=== PATIENT | female | born 1985 | race Caucasian/White ===

== ENCOUNTER 2016-08-26 09:53 | Emergency (ER) | payer MEDICAID ==
[~2016-08-26] VITALS: Ht 170.2 cm; Wt 72.5 kg
[2016-08-26 09:55] VITALS: BP 125/75; PULSE 74; RESP 20; TEMP 98.5; O2SAT 100
--- NOTE | 2016-08-26 10:42 | PD ---
HPI Chief Complaint: Abdominal Pain Time Seen by Provider: 10:18 Travel History International Travel<30 days: No Contact w/Intl Traveler<30days: No Traveled to known affect area: No History of Present Illness HPI The patient was seen and examined in the presence of the nurse. This patient complains of pain in her left low back. Duration 2 days. Severity is moderate. No injury. No fever. Urinary complaints or hematuria. PFSH Past Medical History Medical History: Denies Significant Hx Diabetes: No Diminished Hearing: No GERD: Yes Respiratory: Yes (smoker, obstructive lung disorder) Tetanus Vaccination: < 5 Years Influenza Vaccination: No ?: Not LMP: August 26, 2016 : 4 Para: 4 Miscarriage: 0 : 0 Tubal Ligation: Yes Past Surgical History Section: Yes (X4) Cholecystectomy: Yes Gynecologic Surgery: Yes ( X4, TUBAL LIGATION.) Hysterectomy: No Social History Alcohol Use: Yes (occ) Tobacco Use: Yes (1 PPD) Substance Use: Yes (marijuana) Allergies-Medications (Allergen,Severity, Reaction): Coded Allergies: No Known Allergies (Verified , 09/10/15) Reported Meds & Prescriptions Reported Meds & Active Scripts Active No Active Prescriptions or Reported Medications Review of Systems General / Constitutional: No: Fever HENT: No: Headaches Cardiovascular: No: Chest Pain or Discomfort Respiratory: No: Cough Physical Exam Narrative GASTROINTESTINAL: Abdomen soft, non-tender, nondistended. Positive bowel sounds. No hepato-splenomegaly, or palpable masses. No guarding. SKIN: Focused skin assessment reveals no rash or ulcers. Skin is warm and dry. Palpation shows no induration or nodules. Back: No midline tenderness. There is readily reproducible point tenderness to the left low back. No bruising or swelling or spasm seen. Straight leg and cross straight leg raises are negative NEUROLOGICAL: Awake and alert. Pupils are equal round and reactive. Motor and sensory grossly within normal limits. Five out of 5 muscle strength in all muscle groups. Normal speech. Data Data Last Documented VS Vital Signs Date Time Temp Pulse Resp B/P Pulse Ox O2 Delivery O2 Flow Rate FiO2 08/26/16 09:55 98.5 74 20 125/75 100 Room Air Orders Ed Urine Pregnancytest Poc (08/26/16 10:34) Urinalysis - C+S If Indicated (08/26/16 10:34) Labs Laboratory Tests Test 08/26/16 10:39 Urine Color YELLOW Urine Turbidity HAZY Urine pH 5.5 Urine Specific [place] 1.020 Urine Protein NEG mg/dL Urine Glucose (UA) NEG mg/dL Urine Ketones NEG mg/dL Urine Occult Blood SMALL Urine Nitrite NEG Urine Bilirubin NEG Urine Urobilinogen LESS THAN 2.0 MG/DL Urine Leukocyte Esterase NEG Urine RBC 1 /hpf Urine WBC 1 /hpf Urine Squamous Epithelial 1 /hpf Cells Urine Mucus FEW /lpf Microscopic Urinalysis Comment CULT NOT INDICATED MDM Medical Decision Making Medical Screen Exam Complete: Yes Emergency Medical Condition: Yes Medical Record Reviewed: Yes Differential Diagnosis Sciatica, lumbar strain, pyelonephritis Narrative Course I have reviewed the patient's electronic medical record. Urine is negative Urinalysis is negative I think this patient most likely has mechanical low back pain. Presentation not consistent with kidney stone. She does not have infection. Clinically stable for outpatient follow-up I prescribed her some tramadol for symptom relief Diagnosis Primary Impression: Low back pain Qualified Code: M54.5 - Acute left-sided low back pain without sciatica Additional Instructions: The patient was advised to follow up with their physician and return if they worsen. The patient was warned about potential sedation for the medications they will receive on prescription. Med/Other Pt SpecificInfo: Prescription(s) given Scripts Tramadol 50 Mg Tab50 Mg PO Q6H PRN (PAIN) #20 TAB Ref 0 Prov:Zac Arredondo MD 08/26/16 Disposition: 01 DISCHARGE HOME Condition: Stable Zac Arredondo MD Aug 26, 2016 10:42
[2016-08-26 11:10] LABS: BLOOD, URINE SMALL (NEG); GLUCOSE,URINE NEG (NEG); KETONE, URINE NEG (NEG); MUCUS URINE FEW /lpf (OCC); NITRITE,URINE NEG (NEG); PH, URINE 5.5 (5.0-8.5); SQUAMOUS EPITHELIAL CELL URINE 1 /hpf (0-5); URINE COLOR YELLOW (YELLW/STRAW)
[2016-08-26 11:11] LABS: COMMENT (UR) CULT NOT INDICATED; CULTURE IF INDICATED CULT NOT INDICATED
[2016-08-26] MEDS ORDERED: TRAM50TA PO (12:43)
== END 2016-08-26 13:29 | disposition home or self-care (01) ==
LOC: NEPD 09:53
DX: M54.5 Low back pain (principal); F17.210 Nicotine dependence, cigarettes, uncomplicated; F12.90 Cannabis use, unspecified, uncomplicated
CPT/HCPCS: 81001; 84703; 99283

== ENCOUNTER 2016-12-27 22:56 | Emergency (ER) | payer MEDICAID ==
[~2016-12-27] VITALS: Ht 170.2 cm; Wt 74.0 kg
[~2016-12-27 22:56] MED LIST: TRAM50TA PO
[2016-12-27 23:32] VITALS: BP 111/61; PULSE 74; RESP 18; TEMP 98.2; O2SAT 98
== END 2016-12-28 01:59 | disposition left against medical advice (07) ==
LOC: PHED 22:56
DX: Z53.21 Procedure and treatment not carried out due to patient leaving prior to being seen by health care provider (principal)
CPT/HCPCS: 99281

== ENCOUNTER 2017-03-11 19:22 | Emergency (ER) | payer SELFPAY ==
[~2017-03-11] VITALS: Ht 170.2 cm; Wt 77.0 kg
[2017-03-11 19:37] VITALS: BP 123/62; PULSE 90; RESP 18; TEMP 98.5; O2SAT 99
[2017-03-11] MEDS ORDERED: SODIUM CHLOR 0.9% 1000 ML INJ 1,000 ML IV ONE (19:44)
[2017-03-11] MEDS ORDERED: MORPHINE SULFATE 4 MG/ML INJ IV PUSH ONE (19:45)
[2017-03-11] MEDS ORDERED: KETOROLAC TROMETHAMINE 30 MG/ML (IVP) VIAL IV PUSH ONE (19:45)
[2017-03-11] MEDS ORDERED: ONDANSETRON HCL 4 MG/2 ML VIAL IV PUSH ONE (19:45)
--- NOTE | 2017-03-11 19:49 | PD ---
HPI Chief Complaint: Flank/Kidney Pain Time Seen by Provider: 19:40 Travel History International Travel<30 days: No Contact w/Intl Traveler<30days: No Traveled to known affect area: No History of Present Illness HPI C/O LEFT FLANK PAIN, 8/10, [place], ?RADIATING TO LLL, DENIES ASSOC FEVER/N/V/D/ ....no alleviating/aggraavating factors CHART AND RN NOTES REVIEWED PCP- PMHX: DENIES PSHX: GB PFSH Past Medical History Diabetes: No Diminished Hearing: No GERD: Yes Respiratory: Yes (smoker, obstructive lung disorder) : 4 Para: 4 Miscarriage: 0 : 0 Tubal Ligation: Yes Past Surgical History Section: Yes (X4) Cholecystectomy: Yes Gynecologic Surgery: Yes ( X4, TUBAL LIGATION.) Hysterectomy: No Social History Alcohol Use: Yes (occ) Tobacco Use: Yes (1 PPD) Substance Use: Yes (marijuana) Allergies-Medications (Allergen,Severity, Reaction): Coded Allergies: No Known Allergies (Verified Allergy, Unknown, 03/11/17) Reported Meds & Prescriptions Reported Meds & Active Scripts Active Naproxen EC (Naproxen) 375 Mg Tabdr 375 Mg PO BID Baclofen 10 Mg Tab 10 Mg PO Q8HR Review of Systems Except as stated in HPI: all other systems reviewed are Neg General / Constitutional: No: Fever Eyes: No: Visual changes HENT: No: Headaches Cardiovascular: No: Chest Pain or Discomfort Respiratory: No: Shortness of Breath Gastrointestinal: No: Abdominal Pain Genitourinary: Positive: Flank Pain Musculoskeletal: No: Pain Skin: No Rash Neurologic: No: Weakness Psychiatric: No: Depression Endocrine: No: Polydipsia Hematologic/Lymphatic: No: Easy Bruising Physical Exam Narrative GENERAL: SKIN: Warm and dry. HEAD: Atraumatic. Normocephalic. EYES: Pupils equal and round. No scleral icterus. No injection or drainage. ENT: No nasal bleeding or discharge. Mucous membranes pink and moist. NECK: Trachea midline. No JVD. CARDIOVASCULAR: Regular rate and rhythm. RESPIRATORY: No accessory muscle use. Clear to auscultation. Breath sounds equal bilaterally. GASTROINTESTINAL: Abdomen soft, non-tender, nondistended, MILD LLQ TTP WELL LEFT CVAT MUSCULOSKELETAL: Extremities without clubbing, cyanosis, or edema. No obvious deformities. NEUROLOGICAL: Awake and alert. No obvious cranial nerve deficits. Motor grossly within normal limits. Five out of 5 muscle strength in the arms and legs. Normal speech. PSYCHIATRIC: Appropriate mood and affect; insight and judgment normal. Data Data Last Documented VS Vital Signs Date Time Temp Pulse Resp B/P (MAP) Pulse Ox O2 Delivery O2 Flow Rate FiO2 03/11/17 20:44 70 16 120/60 (80) 99 03/11/17 19:37 98.5 Orders Orders Urinalysis - C+S If Indicated (03/11/17 19:44) Ed Urine Pregnancytest Poc (03/11/17 19:44) Ct Abd/Pel W/O Iv Contrast (03/11/17 19:44) Iv Access Insert/Monitor (03/11/17 19:44) Ketorolac Inj (Toradol Inj) (03/11/17 19:45) Ondansetron Inj (Zofran Inj) (03/11/17 19:45) Sodium Chlor 0.9% 1000 Ml Inj (Ns 1000 M (03/11/17 19:44) Morphine Inj (Morphine Inj) (03/11/17 20:15) Ed Discharge Order (03/11/17 20:40) Labs Laboratory Tests Test 03/11/17 19:44 Urine Color YELLOW Urine Turbidity CLEAR Urine pH 6.0 Urine Specific [place] 1.025 Urine Protein NEG mg/dL Urine Glucose (UA) NEG mg/dL Urine Ketones NEG mg/dL Urine Occult Blood NEG Urine Nitrite NEG Urine Bilirubin NEG Urine Leukocyte Esterase NEG Urine RBC 0-3 /hpf Urine WBC 0-2 /hpf Urine Squamous Epithelial Cells 0-5 /hpf Urine Mucus MOD /lpf Microscopic Urinalysis Comment CULT NOT INDICATED MDM Medical Decision Making Medical Screen Exam Complete: Yes Emergency Medical Condition: Yes Medical Record Reviewed: Yes Differential Diagnosis PYELO V UTI V OVARIAN CYST V COLITIS V KIDNEY STONE V ECTOPIC PREG Narrative Course NEG , UA NEG FOR UTI, Diagnosis Primary Impression: Low back pain Qualified Codes: M54.5 - Low back pain Additional Impression: Muscle strain Patient Instructions: Acute Low Back Pain (ED), General Instructions Scripts Naproxen DR (Naproxen EC) 375 Mg Tabdr 375 MG PO BID, #30 TAB 0 Refills Prov: Wilbert Mcguire MD 03/11/17 Baclofen (Baclofen) 10 Mg Tab 10 MG PO Q8HR, #21 TAB 0 Refills Prov: Wilbert Mcguire MD 03/11/17 Disposition: 01 DISCHARGE HOME Condition: Stable Wilbert Mcguire MD Mar 11, 2017 19:49
[2017-03-11 19:53] LABS: BLOOD, URINE NEG (NEG); GLUCOSE,URINE NEG (NEG); KETONE, URINE NEG (NEG); NITRITE,URINE NEG (NEG)
[2017-03-11 20:02] LABS: MUCUS URINE MOD /lpf (OCC); URINE COLOR YELLOW (YELLW/STRAW)
[2017-03-11 20:03] LABS: COMMENT (UR) CULT NOT INDICATED; CULTURE IF INDICATED CULT NOT INDICATED; RBC, URINE 0-3 /hpf (0-3); SQUAMOUS EPITHELIAL CELL URINE 0-5 /hpf (0-5); WBC, URINE 0-2 /hpf (0-5)
[2017-03-11] MEDS ORDERED: MORPHINE SULFATE 2 MG/ML INJ IV ONE (20:15)
--- NOTE | 2017-03-11 20:28 | RADRPT ---
EXAM DATE/TIME: 03/11/2017 20:03 [facility] COMPARISON: No previous studies available for comparison. INDICATIONS : Left flank /back pain since this a.m. ORAL CONTRAST: No oral contrast ingested. RADIATION DOSE: 14.02 CTDIvol (mGy) MEDICAL HISTORY : None SURGICAL HISTORY : Cholecystectomy. Tubal ligation. section. ENCOUNTER: Initial ACUITY: 1 day PAIN SCALE: 9/10 LOCATION: Left flank TECHNIQUE: Volumetric scanning of the abdomen and pelvis was performed. Using automated exposure control and ad justment of the mA and/or kV according to patient size, radiation dose was kept as low as reasonably achievable to obtain optimal diagnostic quality images. DICOM format image data is available electro nically for review and comparison. FINDINGS: LOWER LUNGS: The visualized lower lungs are clear. LIVER: Homogeneous density without lesion. There is no dilation of the biliary tree. Status post cholecyste ctomy. SPLEEN: Normal size without lesion. PANCREAS: Within normal limits. KIDNEYS: Normal in size and shape. There is no mass, stone, or hydronephrosis. ADRENAL GLANDS: Within normal limits. VASCULAR: There is no aortic aneurysm. BOWEL/MESENTERY: No oral contrast was given limiting the sensitivity of the exam. The stomach, small bowel, and colon demonstrate no acute abnormality. There is no free intraperitoneal air or fluid. There is a normal a ppendix. ABDOMINAL WALL: Within normal limits. RETROPERITONEUM: There is no lymphadenopathy. BLADDER: No wall thickening or mass. REPRODUCTIVE: Within normal limits. INGUINAL: There is no lymphadenopathy or hernia. MUSCULOSKELETAL: Within normal limits for patient age. CONCLUSION: 1. The kidneys are unremarkable with no renal calculi or obstruction. 2. Status post cholecystectomy. 3. Nonobstructive bowel gas pattern the appendix is unremarkable. Js Shaver MD on March 11, 2017 at 20:25 Board Certified Radiologist. This report was verified electronically.
[2017-03-11] MEDS ORDERED: NAPR375T4 PO (20:39)
[2017-03-11] MEDS ORDERED: BACL10TA PO (20:39)
[2017-03-11 20:44] VITALS: BP 120/60
== END 2017-03-11 21:14 | disposition home or self-care (01) ==
LOC: PHED 19:22
DX: M54.5 Low back pain (principal); F17.210 Nicotine dependence, cigarettes, uncomplicated
CPT/HCPCS: 74176; 81001; 84703; 96361; 96374; 96375; 99285; J1885; J2270; J2405; J7030

== ENCOUNTER 2017-09-27 11:02 | Observation (INO) | payer SELFPAY ==
[2017-09-27] VITALS (8 sets, daily range): BP systolic 92–114; BP diastolic 51–66; PULSE 54–69; RESP 16–20; TEMP 97.4–98; O2SAT 96–99
[~2017-09-27 11:02] MED LIST changes: +BACL10TA PO; +NAPR375T4 PO; -TRAM50TA PO
--- NOTE | 2017-09-27 11:43 | PD ---
HPI Chief Complaint: Chest Pain Time Seen by Provider: 11:30 Travel History International Travel<30 days: No Contact w/Intl Traveler<30days: No Traveled to known affect area: No History of Present Illness HPI 32yo F with no significant PMH presents to the ED with c/o left sided chest pain that radiates to left arm for 3 days. Said it is intermittent, sharp, and associated with nausea and sob. Had diaphoresis last night. Also with tingling in left fingers. Had some epigastric discomfort before. No exacerbating or alleviating factors. Said she is a cig smoker and her grandfather of heart attack at age 35. Said she had chest pain 2 years ago and was observed but never had stress test. Denies any drug use, vomiting, focal weakness or numbness. PFSH Past Medical History COPD: Yes Diabetes: No Diminished Hearing: No GERD: Yes Respiratory: Yes (smoker, obstructive lung disorder) Tetanus Vaccination: < 5 Years Influenza Vaccination: No ?: Not LMP: on it : 4 Para: 4 Miscarriage: 0 : 0 Tubal Ligation: Yes Past Surgical History Section: Yes (X4) Cholecystectomy: Yes Gynecologic Surgery: Yes ( X4, TUBAL LIGATION.) Hysterectomy: No Social History Alcohol Use: Yes (occ) Tobacco Use: Yes (1 PPD) Substance Use: Yes (marijuana) Allergies-Medications (Allergen,Severity, Reaction): Coded Allergies: No Known Allergies (Verified Allergy, Unknown, 09/27/17) Reported Meds & Prescriptions Reported Meds & Active Scripts Active No Active Prescriptions or Reported Medications Review of Systems Except as stated in HPI: all other systems reviewed are Neg Physical Exam Narrative GENERAL: 32yo F not in distress. SKIN: Focused skin assessment warm/dry. HEAD: Atraumatic. Normocephalic. EYES: Pupils equal and round. No scleral icterus. No injection or drainage. ENT: No nasal bleeding or discharge. Mucous membranes pink and moist. NECK: Trachea midline. No JVD. CARDIOVASCULAR: Regular rate and rhythm. No murmur appreciated. RESPIRATORY: No accessory muscle use. Clear to auscultation. Breath sounds equal bilaterally. GASTROINTESTINAL: Abdomen soft, non-tender, nondistended. No rebound tenderness or guarding. MUSCULOSKELETAL: No obvious deformities. No clubbing. No cyanosis. No edema. NEUROLOGICAL: Awake and alert. No obvious cranial nerve deficits. Motor grossly within normal limits. Normal speech. PSYCHIATRIC: Appropriate mood and affect; insight and judgment normal. Data Data Last Documented VS Vital Signs Date Time Temp Pulse Resp B/P (MAP) Pulse Ox O2 Delivery O2 Flow Rate FiO2 09/27/17 12:02 58 16 101/61 (74) 98 Room Air 09/27/17 11:05 97.8 Orders Orders Basic Metabolic Panel (Bmp) (09/27/17 11:31) Complete Blood Count With Diff (09/27/17 11:31) Magnesium (Mg) (09/27/17 11:31) Prothrombin Time / Inr (Pt) (09/27/17 11:31) Act Partial Throm Time (Ptt) (09/27/17 11:31) Troponin I (09/27/17 11:31) Chest, Single Ap (09/27/17 11:31) Aspirin (Aspirin) (09/27/17 11:45) Nitroglycerin Sl (Nitrostat Sl) (09/27/17 11:45) Lipase (09/27/17 11:31) Admit Order (Ed Use Only) (09/27/17 12:59) Labs Laboratory Tests Test 09/27/17 11:45 White Blood Count 5.1 TH/MM3 Red Blood Count 4.36 MIL/MM3 Hemoglobin 13.8 GM/DL Hematocrit 39.8 % Mean Corpuscular Volume 91.2 FL Mean Corpuscular Hemoglobin 31.7 PG Mean Corpuscular Hemoglobin Concent 34.8 % Red Cell Distribution Width 12.5 % Platelet Count 243 TH/MM3 Mean Platelet Volume 8.4 FL Neutrophils (%) (Auto) 59.0 % Lymphocytes (%) (Auto) 32.1 % Monocytes (%) (Auto) 5.3 % Eosinophils (%) (Auto) 3.3 % Basophils (%) (Auto) 0.3 % Neutrophils # (Auto) 3.0 TH/MM3 Lymphocytes # (Auto) 1.6 TH/MM3 Monocytes # (Auto) 0.3 TH/MM3 Eosinophils # (Auto) 0.2 TH/MM3 Basophils # (Auto) 0.0 TH/MM3 CBC Comment DIFF FINAL Differential Comment Prothrombin Time 10.3 SEC Prothromb Time International Ratio 1.0 RATIO Activated Partial Thromboplast Time 26.6 SEC Blood Urea Nitrogen 13 MG/DL Creatinine 1.10 MG/DL Random Glucose 63 MG/DL Calcium Level 8.8 MG/DL Magnesium Level 2.4 MG/DL Sodium Level 140 MEQ/L Potassium Level 3.6 MEQ/L Chloride Level 107 MEQ/L Carbon Dioxide Level 29.4 MEQ/L Anion Gap 4 MEQ/L Estimat Glomerular Filtration Rate 57 ML/MIN Troponin I LESS THAN 0.02 NG/ML Lipase 146 U/L MDM Medical Decision Making Medical Screen Exam Complete: Yes Emergency Medical Condition: Yes Interpretation(s) EKG: NSR 69bpm. Normal axis. No ST segment elevation or depression. Differential Diagnosis ACS vs. pneumonia vs. pericarditis vs. anxiety Narrative Course 32yo F with left sided chest pain for 3 days. Labs reviewed, no leukocytosis. H/H normal. Troponin negative. Glucose mildly low at 63, pt given juice. Lipase normal. CXR negative. Since pt has significant family history with grandfather with [place] at 35yo, and she is a cig smoker, will do observation for chest pain center. Pt given aspirin but not sublingual nitro since is low. Discussed with Dr. Gallegos and accepted to her service. Diagnosis Primary Impression: Chest pain Qualified Codes: R07.9 - Chest pain, unspecified Admitting Information Admitting Physician Requests: Observation Scripts No Active Prescriptions or Reported Meds Adelita Nelson DO September 27, 2017 11:43
[2017-09-27] MEDS ORDERED: NITROGLYCERIN 0.4 MG SL 25 TABS/BTL SL PRN ×2 (11:45→13:15)
[2017-09-27] MEDS ORDERED: ASPIRIN 325 MG TAB PO ONE (11:45)
--- NOTE | 2017-09-27 12:01 | RADRPT ---
EXAM DATE/TIME: 09/27/2017 11:42 [facility] COMPARISON: No previous studies available for comparison. INDICATIONS : Chest pain. MEDICAL HISTORY : None. SURGICAL HISTORY : Cholecystectomy. Tubal ligation. section. ENCOUNTER: Initial ACUITY: 3 days PAIN SCORE: 6/10 LOCATION: Bilateral chest FINDINGS: A single view of the chest demonstrates the lungs to be symmetrically aerated without evidence of mas s, infiltrate or effusion. The cardiomediastinal contours are unremarkable. Osseous structures are intact. CONCLUSION: No acute disease. Gurpreet Mackay MD on September 27, 2017 at 11:59 Board Certified Radiologist. This report was verified electronically.
[2017-09-27 12:14] LABS: BASOPHIL % 0.3 % (0.0-2.0); EOSINOPHIL # 0.2 TH/MM3 (0-0.4); EOSINOPHIL % 3.3 % (0.0-4.0); HEMATOCRIT 39.8 % (35.0-46.0); HEMOGLOBIN 13.8 GM/DL (11.6-15.3); LYMPH % 32.1 % (9.0-44.0); LYMPHOCYTE # 1.6 TH/MM3 (1.0-4.8); MEAN CELL VOLUME 91.2 FL (80.0-100.0); MEAN CORPUSCULAR HEMOGLOBIN 31.7 PG (27.0-34.0); MEAN CORPUSCULAR HGB CONC 34.8 % (32.0-36.0); MEAN PLATELET VOLUME 8.4 FL (7.0-11.0); MONO % 5.3 % (0.0-8.0); MONOCYTE # 0.3 TH/MM3 (0-0.9); PLATELET COUNT 243 TH/MM3 (150-450); RED BLOOD COUNT 4.36 MIL/MM3 (4.00-5.30); RED CELL DISTRIBUTION WIDTH 12.5 % (11.6-17.2); WHITE BLOOD COUNT 5.1 TH/MM3 (4.0-11.0)
[2017-09-27 12:29] LABS: CHLORIDE 107 MEQ/L (98-107); SODIUM (NA) 140 MEQ/L (136-145)
[2017-09-27 12:32] LABS: CALCIUM 8.8 MG/DL (8.5-10.1)
[2017-09-27 12:33] LABS: BICARBONATE 29.4 MEQ/L (21.0-32.0); BLOOD UREA NITROGEN 13 MG/DL (7-18); GLUCOSE,RANDOM 63 MG/DL (74-106); MAGNESIUM 2.4 MG/DL (1.5-2.5); PROTHROMBIN TIME - PATIENT 10.3 SEC (9.8-11.6)
[2017-09-27 12:36] LABS: GLOMERULAR FILTRATION RATE 57 ML/MIN (>89)
[2017-09-27 12:41] LABS: TROPONIN I LESS THAN 0.02 NG/ML (0.02-0.05)
[2017-09-27] MEDS ORDERED: SODIUM CHLORIDE 0.9% FLUSH 10 ML FLUSH IV FLUSH PRN (13:15)
--- NOTE | 2017-09-27 14:44 | HHI.HP ---
[facility] No Primary Care Physician Admission Diagnosis Chest pain Diagnoses: (1) Chest pain Chief Complaint: Chest pain Travel History International Travel<30 Days: No Contact w/Intl Traveler <30 Da: No Traveled to Known Affected Are: No History of Present Illness This is a pleasant 32-year-old female patient with a known medical history of COPD, tobacco abuse, and GERD who presented to the ED with complaints of chest pain. Patient states for the past two days she has worsening shortness of breath , and this am she was awakened out of sleep with sudden, sharp/pressure-like chest pain in her left chest. Patient also states that she had pain radiating down her left arm and in her left axilla. Patient states that the pain is characteristically squeezing, sharp and pressure-like in nature, occurs for 1 minute and then immediately goes away without any alleviating factors. Patient denies any known aggravating factors. Patient does admit to associated nausea and shortness of breath and diaphoresis, denies any vomiting. It should be noted that patient has had lower extremity swelling for the past couple days as well. Patient does admit to smoking 1 pack per day since her teen years. She does admit to her grandfather dying of heart attack at the age of 35. Denies ever having a stress test before although she did have an episode of chest pain 2 years ago, was admitted to the hospital and they were unable to determine a diagnosis at that time. Denies history of hypertension. Denies any history of heart disease. Does not follow with PCP at the time, has no insurance. Review of Systems Constitutional: DENIES: Fever, Chills Eyes: DENIES: Diplopia Respiratory: DENIES: Cough Cardiovascular: COMPLAINS OF: Chest pain, Lower Extremity Edema, DENIES: Palpitations Gastrointestinal: DENIES: Abdominal pain, Black stools, Bloody stools, Constipation, Diarrhea, Nausea, Vomiting Integumentary: DENIES: Abnormal pigmentation Immunologic/allergic: DENIES: Eczema Psychiatric: COMPLAINS OF: Anxiety Except as stated in HPI: all other systems reviewed are Neg Past Family Social History Past Medical History PD with tobacco abuse history GERD Past Surgical History 4 Cholecystectomy 2010 Tubal ligation Reported Medications Active No Active Prescriptions or Reported Medications Allergies: Coded Allergies: No Known Allergies (Verified Allergy, Unknown, 09/27/17) Active Ordered Medications Current Medications Medications (Trade) Dose Ordered Sig/Carol Route Start Time Stop Time Status Last Admin (NS Flush) 2 ml UNSCH PRN IV FLUSH 09/27/17 13:15 (NS Flush) 2 ml BID IV FLUSH 09/27/17 21:00 (Nitrostat Sl) 0.4 mg Q5M PRN SL 09/27/17 13:15 Family History Maternal medical history significant for mitral valve prolapse. Social History She admits to smoking 1 pack per day since her teen years. Admits to occasional alcohol use. Admits to occasional marijuana use. Physical Exam Vital Signs Vital Signs Date Time Temp Pulse Resp B/P (MAP) Pulse Ox O2 Delivery O2 Flow Rate FiO2 09/27/17 12:02 58 16 101/61 (74) 98 Room Air 09/27/17 11:21 Room Air 09/27/17 11:05 97.8 69 18 114/61 (78) 99 Physical Exam GENERAL: Well-developed, well-nourished patient in [facility]. SKIN: Warm and dry. No rash. HEAD: Normocephalic. Atraumatic. EYES: Pupils equal and round. No scleral icterus. No injection or drainage. ENT: No nasal bleeding or discharge. Mucous membranes pink and moist. NECK: Supple. Trachea midline. CARDIOVASCULAR: Regular rate and rhythm. S1, S2 noted. No murmur appreciated. Chest pain to palpation left chest area. RESPIRATORY: No accessory muscle use. Clear to auscultation. Breath sounds equal bilaterally. GASTROINTESTINAL: Abdomen soft, non-tender, nondistended. Normoactive bowel sounds x4. MUSCULOSKELETAL: No obvious deformities. Extremities without clubbing, cyanosis , or edema. NEUROLOGICAL: Awake and alert. No obvious cranial nerve deficits. Motor grossly within normal limits. 5/5 muscle strength in bilateral upper and lower extremities. Normal speech. PSYCHIATRIC: Appropriate mood and affect; insight and judgment normal. Laboratory Laboratory Tests Test 09/27/17 11:45 White Blood Count 5.1 Red Blood Count 4.36 Hemoglobin 13.8 Hematocrit 39.8 Mean Corpuscular Volume 91.2 Mean Corpuscular Hemoglobin 31.7 Mean Corpuscular Hemoglobin Concent 34.8 Red Cell Distribution Width 12.5 Platelet Count 243 Mean Platelet Volume 8.4 Neutrophils (%) (Auto) 59.0 Lymphocytes (%) (Auto) 32.1 Monocytes (%) (Auto) 5.3 Eosinophils (%) (Auto) 3.3 Basophils (%) (Auto) 0.3 Neutrophils # (Auto) 3.0 Lymphocytes # (Auto) 1.6 Monocytes # (Auto) 0.3 Eosinophils # (Auto) 0.2 Basophils # (Auto) 0.0 CBC Comment DIFF FINAL Differential Comment Prothrombin Time 10.3 Prothromb Time International Ratio 1.0 Activated Partial Thromboplast Time 26.6 Blood Urea Nitrogen 13 Creatinine 1.10 Random Glucose 63 Calcium Level 8.8 Magnesium Level 2.4 Sodium Level 140 Potassium Level 3.6 Chloride Level 107 Carbon Dioxide Level 29.4 Anion Gap 4 Estimat Glomerular Filtration Rate 57 Troponin I LESS THAN 0.02 Lipase 146 Result Diagram: 09/27/17 1145 09/27/17 1145 Imaging Last Impressions Chest X-Ray 09/27/17 1131 Signed Impressions: Service Date/Time: Wednesday, September 27, 2017 11:42 - CONCLUSION: No acute disease. Guprreet Mackay MD Septic Shock Reassessment Septic shock perfusion: reassessment completed Caprini VTE Risk Assessment Caprini VTE Risk Assessment: No/Low Risk (score <= 1) Caprini Risk Assessment Model Point Value = 1 Point Value = 2 Point Value = 3 Point Value = 5 Age 41-60 Minor surgery BMI > 25 kg/m2 Swollen legs Varicose veins or History of unexplained or recurrent spontaneous Oral contraceptives or hormone replacement Sepsis (< 1 month) Serious lung disease, including pneumonia (< 1 month) Abnormal pulmonary function Acute myocardial infarction Congestive heart failure (< 1 month) History of inflammatory bowel disease Medical patient at bed rest Age 61-74 Arthroscopic surgery Major open surgery (> 45 min) Laparoscopic surgery (> 45 min) Malignancy Confined to bed (> 72 hours) Immobilizing plaster cast Central venous access Age >= 75 History of VTE Family history of VTE Factor V Leiden Prothrombin [id number] Lupus anticoagulant Anticardiolipin antibodies Elevated serum homocysteine Heparin-induced thrombocytopenia Other congenital or acquired thrombophilia Stroke (< 1 month) Elective arthroplasty Hip, pelvis, or leg fracture Acute spinal cord injury (< 1 month) Prophylaxis Regimen Total Risk Factor Score Risk Level Prophylaxis Regimen 0-1 Low Early ambulation 2 Moderate Order ONE of the following: *Sequential Compression Device (SCD) *Heparin 5000 units SQ BID 3-4 Higher Order ONE of the following medications: *Heparin 5000 units SQ TID *Enoxaparin/Lovenox 40 mg SQ daily (WT < 150 kg, CrCl > 30 mL/min) *Enoxaparin/Lovenox 30 mg SQ daily (WT < 150 kg, CrCl > 10-29 mL/min) *Enoxaparin/Lovenox 30 mg SQ BID (WT < 150 kg, CrCl > 30 mL/min) AND/OR *Sequential Compression Device (SCD) 5 or more Highest Order ONE of the following medications: *Heparin 5000 units SQ TID (Preferred with Epidurals) *Enoxaparin/Lovenox 40 mg SQ daily (WT < 150 kg, CrCl > 30 mL/min) *Enoxaparin/Lovenox 30 mg SQ daily (WT < 150 kg, CrCl > 10-29 mL/min) *Enoxaparin/Lovenox 30 mg SQ BID (WT < 150 kg, CrCl > 30 mL/min) AND *Sequential Compression Device (SCD) Assessment and Plan Problem List: (1) Chest pain ICD Code: R07.9 - Chest pain, unspecified Assessment and Plan This is a pleasant 32-year-old female patient with a known medical history of COPD, tobacco abuse, and GERD who presented to the ED with complaints of chest pain. Patient states for the past two days she has worsening shortness of breath , and this am she was awakened out of sleep with sudden, sharp/pressure-like chest pain in her left chest. Patient also states that she had pain radiating down her left arm and in her left axilla. Chest pain rule out ACS versus musculoskeletal cause vs other etiology - Patient has been admitted to the chest pain center for observation. Serial EKGs and serial troponins have been ordered for ruling out ACS purposes. Initial 2 troponins flat. Awaiting third enzyme. - EKG reviewed showing NSB, no ST changes. Controlled heart rate. Continue cardiac telemetry, monitor for any arrhythmias. - Chest x-ray reviewed showing no acute disease. - CBC and BMP reviewed, essentially unremarkable. - Will start IVF, seems to be mildly dehydrated. Creatinine 1.1, GFR 57. - Given Aspirin and Nitroglycerin in ED. Will continue aspirin daily. Nitro as needed. - Chest pain is still intermittent. Will provide Toradol x 1. Assess response. - Supportive care. COPD ? not in exacerbation Tobacco abuse - Patient states she has a history of obstructive lung disease, but does not follow with a sports management professor or PCP for quite some time now. Breathing comfortably on RA. No wheezing. Supportive care. - Encouraged cessation. CXR as above. DVT Prophylaxis: SCDs. Ambulation. Tammie Park September 27, 2017 14:44
[2017-09-27] MEDS ORDERED: KETOROLAC TROMETHAMINE 30 MG/ML (IVP) VIAL IV PUSH ONE (16:00)
[2017-09-27] MEDS: SODIUM CHLOR 0.9% 1000 ML INJ 1,000 ML IV SCH (16:16)
[2017-09-27] MEDS: SODIUM CHLORIDE 0.9% FLUSH 10 ML FLUSH IV FLUSH SCH (16:17)
[2017-09-27 17:26] LABS: TROPONIN I LESS THAN 0.02 NG/ML (0.02-0.05)
[2017-09-27 18:47] LABS: CHOLESTEROL 87 MG/DL (120-200); TRIGLYCERIDES 95 MG/DL (42-150)
[2017-09-27 18:49] LABS: CHOLESTEROL/ HDL RATIO 1.77 RATIO; HDL CHOLESTEROL 49.1 MG/DL (40.0-60.0); LDL CHOLESTEROL 19 MG/DL (0-99)
[2017-09-28 00:29] VITALS: BP 93/70; PULSE 61; RESP 20; TEMP 96.8; O2SAT 96
[2017-09-28] MEDS: SODIUM CHLOR 0.9% 1000 ML INJ 1,000 ML IV SCH (03:25)
[2017-09-28 04:05] VITALS: BP 121/75; PULSE 55; RESP 20; TEMP 96.6; O2SAT 99
[2017-09-28 07:10] VITALS: PULSE 70
[2017-09-28 08:00] VITALS: BP 117/71; PULSE 51; RESP 20; TEMP 98.7; O2SAT 97
--- NOTE | 2017-09-28 08:28 | HHI.PR ---
Subjective Remarks 32-year-old female who is seen in follow-up for left-sided chest wall and arm pain. Patient states that she is still experiencing the discomfort. It is reproducible on palpation. Patient does have history of coming to the hospital and diagnosed with chest wall pain, pain secondary to bronchitis. However patient does have increased risk factors with early onset heart disease. Discussed with the patient treatment plans to include medical management, treatment for musculoskeletal pain, or pursuing exercise stress test to rule out any underlying ischemia. Patient would like to pursue provocative testing. We will plan exercise stress test. Patient remains afebrile, vital signs are stable. Objective Vitals Vital Signs Date Time Temp Pulse Resp B/P (MAP) Pulse Ox O2 Delivery O2 Flow Rate FiO2 09/28/17 08:00 98.7 51 20 117/71 (86) 97 09/28/17 07:10 70 09/28/17 04:05 96.6 55 20 121/75 (90) 99 09/28/17 00:29 96.8 61 20 93/70 (78) 96 09/27/17 20:40 98 21 09/27/17 20:31 97.4 56 20 95/66 (76) 98 09/27/17 20:09 56 09/27/17 18:16 16 09/27/17 16:30 97 21 09/27/17 16:00 98.0 56 20 92/51 (65) 97 09/27/17 14:45 09/27/17 13:30 54 16 104/62 (76) 96 Room Air 09/27/17 12:02 58 16 101/61 (74) 98 Room Air 09/27/17 11:21 Room Air 09/27/17 11:05 97.8 69 18 114/61 (78) 99 I/O 09/27/17 09/27/17 09/27/17 09/28/17 09/28/17 09/28/17 07:00 15:00 23:00 07:00 15:00 23:00 Intake Total 480 ml 1132 ml 0 ml Output Total 200 ml Balance 280 ml 1132 ml 0 ml Intake Oral 480 ml 0 ml IV Total 1132 ml Output Urine Total 200 ml # Voids 1 1 Result Diagram: 09/27/17 1145 09/27/17 1145 Objective Remarks GENERAL: Well-developed, well-nourished, in no acute distress. alert and orientated HEENT: Head is normocephalic without any lesions or masses noted. Facial features are symmetric. Eyes: Extraocular muscles are intact. NECK: Supple without any masses. Trachea midline no deviation. No JVD, CARDIAC: Regular rhythm, regular rate. S1/S2 are heard. No murmurs gallops or rubs. Reproducible chest wall tenderness along the left lateral chest in the fourth to sixth intercostal spaces LUNGS: Clear to auscultation bilaterally. No wheeze, rhonchi or rales. No use of accessory muscles on inspiration or expiration. ABDOMEN: Soft, nontender. Nondistended. Bowel sounds heard in all 4 quadrants. No organomegaly or masses. Negative rebound, negative guarding EXTREMITIES: No edema, pulses are equal bilaterally. No cyanosis or clubbing NEUROLOGY: Mood and affect appear appropriate. Cranial nerves II through XII grossly intact. Moving all extremities, speech is clear Urinary Catheter: No Vascular Central Line Catheter: No A/P Assessment and Plan Chest pain, atypical - Patient has been admitted to the chest pain center for observation with increased risk factors to include early onset family history of heart disease, tobacco use - Patient has been ruled out for acute coronary event with serial cardiac enzymes that are negative - Serial EKG which reviewed by myself showed normal sinus rhythm without any changes. - Exercise stress test was performed which indicated - Given Aspirin and Nitroglycerin in ED. Will continue aspirin daily. Nitro as needed. Chronic obstructive pulmonary disease in a patient with known history of tobacco abuse - Continue O2 sat mentation maintain O2 sats greater than 92% - Encouraged cessation. DVT Prophylaxis: -Sequential compression devices -Low risk, early ambulation Discharge Planning Discharge home in stable condition Activity: Ad musa. Diet: Healthy heart diet Medication per medication reconciliation Follow-up with primary medical doctor in 1 week Zac Suero September 28, 2017 08:28
[2017-09-28] MEDS ORDERED: ONDANSETRON ODT 4 MG TAB SL PRN (08:30)
[2017-09-28] MEDS: SODIUM CHLORIDE 0.9% FLUSH 10 ML FLUSH IV FLUSH SCH (08:47)
[2017-09-28] MEDS ORDERED: ASPIRIN 81 MG CHEW TAB CHEW SCH (09:00)
[2017-09-28 12:00] VITALS: BP 122/80; PULSE 60; RESP 20; TEMP 97.8; O2SAT 99
--- NOTE | 2017-09-28 12:43 | TR ---
Date Performed: 09/28/2017 Time Performed: 09:28:30 DOCTOR: Myrtle Aden DRUG LIST: CLINICAL HISTORY: REASON FOR TEST: REASON FOR ENDING: Completed Protocol OBSERVATION: Chest Pain: None Arrhythmia: None CONCLUSION: Patient tolerated CORTNEY protocol with Total Exercise Time=7:58 Maximum WR=705 % Max HR Achieved=88.0% Maximum BQ=255/90, Paitne twas asymptomatic throughout testing, Testing stopped sec ondary to goals acheived. During peak axercise, quick upsloping ST segments, no significant ST depres carlos, HR and BP appropriate response to exercise. Recovery period, HR and BP returned to baseline. N o ischemia COMMENTS: No ischemia
--- NOTE | 2017-09-28 12:47 | HHI.DCPOC ---
Discharge Care Plan Diagnosis: (1) Chest pain Goals to Promote Your Health * To prevent worsening of your condition and complications * To maintain your health at the optimal level Directions to Meet Your Goals Take your medications as prescribed Follow your dietary instruction Follow activity as directed Keep your appointments as scheduled Take your immunizations and boosters as scheduled If your symptoms worsen call your PCP, if no PCP go to Urgent Care Center or Emergency Room Smoking is Dangerous to Your Health. Avoid second hand smoke Call the 24-hour hour crisis hotline for domestic abuse at Zac Suero September 28, 2017 12:47
--- NOTE | 2017-09-28 16:45 | EKG ---
Date Performed: 09/27/2017 Time Performed: 16:29:18 PTAGE: 32 years EKG: SINUS BRADYCARDIA BORDERLINE ECG PREVIOUS TRACING : 09/27/2017 13.27 Since the previous tracing, no significant change noted DOCTOR: Demetria Emerson Interpretating Date/Time 09/28/2017 16:44:17
--- NOTE | 2017-09-28 16:45 | EKG ---
Date Performed: 09/27/2017 Time Performed: 11:06:47 PTAGE: 32 years EKG: Sinus rhythm NORMAL ECG INTERPRETATION BASED ON A DEFAULT AGE OF 39 YEARS PREVIOUS TRACING 12/04/2013 @ 08 Since the previous tracing, no significant change noted DOCTOR: Demetria Emerson Interpretating Date/Time 09/28/2017 16:43:52
--- NOTE | 2017-09-28 16:45 | EKG ---
Date Performed: 09/27/2017 Time Performed: 13:27:40 PTAGE: 32 years EKG: SINUS BRADYCARDIA BORDERLINE ECG PREVIOUS TRACING : 12/04/2013 10.09 Since the previous tracing, no significant change noted DOCTOR: Demetria Emerson Interpretating Date/Time 09/28/2017 16:44:04
== END 2017-09-28 14:03 | disposition home or self-care (01) ==
LOC: PHED 11:02 → PHEDA 13:00 → PH3A 14:41
PROVIDERS: ADMIT Hospitalist; ATTEND Hospitalist
DX: R07.89 Other chest pain (principal); R06.02 Shortness of breath; R11.0 Nausea; R61 Generalized hyperhidrosis; J44.9 Chronic obstructive pulmonary disease, unspecified; K21.9 Gastro-esophageal reflux disease without esophagitis; R00.1 Bradycardia, unspecified; F17.200 Nicotine dependence, unspecified, uncomplicated; F12.90 Cannabis use, unspecified, uncomplicated
CPT/HCPCS: 71045; 80048; 80061; 82550; 83690; 83735; 84484; 85025; 85610; 85730; 93005; 93017; 96361; 96374; 96375; 99285; G0378; J1885; J7030